=== PATIENT | female | born 1980 | race Caucasian/White ===

== ENCOUNTER 2022-10-17 13:42 | Emergency (ER) | payer SELFPAY ==
[2022-10-17 14:03] VITALS: BP 113/65; PULSE 76; RESP 16; TEMP 37.3; O2SAT 100
--- NOTE | 2022-10-17 15:00 | DI.RAD_ITS ---
Exam(s) XR FOREARM RT EXAM: XR FOREARM RT CLINICAL HISTORY: Fall, R/O Fracture. TECHNIQUE: 2D digital imaging was performed. COMPARISON: No exams were available for comparison FINDINGS: 3 views There is a fracture of the radial head and neck. Some impaction. Joint effusion noted. IMPRESSION: Radial head-neck fracture. Some displacement. DATA REPOSITORY: RADIATION DOSE DELIVERED:
--- NOTE | 2022-10-17 15:08 | W.ED.GENAD ---
Discharge Plan Disposition Patient Disposition: Home Condition: Stable Discharge Details Clinical Impression: Displaced fracture of head of right radius, initial encounter for closed fracture Primary Care Provider: Antonina,Local ED Provider: Arlene Dubon Discharge Instructions Instructions: Arm Fracture in Adults (ED) Additional Instructions: Keep the sling on as much as possible. Please follow-up with orthopedics within the next week for possible surgery. Rest ice. Please take the oxycodone narcotic pain medication as needed for moderate to severe pain. Please take Tylenol or Ibuprofen with food every 4-6 hours as needed for pain and swelling. Stand Alone Forms: Work Release Discharge Data Discharge Date/Time-TO BE ENTERED AT DEPARTURE: 10/17/22 16:46 Medical Decision Making 42-year-old female presents to the ER with a chief complaint of right forearm tenderness status post skiing accident today prior to arrival. Patient reports that she fell onto her right arm was wearing a helmet denies loss of conscious no headache no neck pain no back pain denies any chest or abdominal pain. She is complaining of proximal forearm pain. Intact range of motion to the wrist distal CMS is intact. She is alert and oriented x4. X-ray of right forearm ordered, urine , ice and sling. Patient has no other signs or symptoms of trauma. 1615: Spoke with Dr. Newell who recommends sling and surgery within a week. Patient and family are from [place]. I did discuss the options for surgery here versus follow-up at home they verbalized understanding they opted to follow-up with Ortho in [place]. A disc was requested from radiology. I did discuss home care and strict return instructions they verbalized understanding. Patient is okay with just a sling. I did give patient for 5 mg oxycodone to go. Discussed home care with this. Also instructed RICE procedures, immobilization with sling Tylenol ibuprofen. She verbalized understanding. This text was generated using [employer] dictation system, please disregard any oddities of phrase or misspellings. Imaging Data Radiologic Study: Imaging: X-Ray Radiologist's impression: FINDINGS: 3 views There is a fracture of the radial head and neck.? Some impaction.? Joint effusion noted. IMPRESSION: Radial head-neck fracture.? Some displacement. HPI General Mode of arrival: ambulatory. Date/Time Provider Initiated Documentation: 10/17/22 14:17. Limitations to Documentation: no limitations. Information obtained by: patient, RN notes reviewed and old records reviewed. HPI Narrative: 42-year-old female presents to the ER with a chief complaint of right forearm tenderness status post skiing accident today prior to arrival. Patient reports that she fell onto her right arm was wearing a helmet denies loss of conscious no headache no neck pain no back pain denies any chest or abdominal pain. She is complaining of proximal forearm pain. Intact range of motion to the wrist distal CMS is intact. She is alert and oriented x4. She did not take any medications prior to arrival. General Stated Complaint: Orthopedic MARISELA: 4 Review of Systems All systems reviewed & are unremarkable except as noted in HPI and below Constitutional Constitutional: Denies headache(s) ENT Ears, Nose, Mouth, and Throat: Denies headache(s) Musculoskeletal Musculoskeletal: Reports as per HPI and Reports arthralgias Neurologic Neurologic: Denies headache(s) PFSH All Active Problems (Updated 10/17/22 @ 16:21 by Arlene Dubon NP) Displaced fracture of head of right radius, initial encounter for closed fracture (Acute) Social History Smoking/Tobacco Use Status: Never Smoking risk assessment performed?: Yes Alcohol Intake: never Drug use: Never Substance use type: does not use Do you feel safe at home: Yes Do you feel safe in your relationship?: Yes Exam Narrative Exam Narrative: General: Well Developed, Awake and Alert, conversant. Skin: Warm and Dry HEENT: Head: No palpable deformities, Normocephalic Eyes: Pupils PERRLA, EOM's intact. No periorbital eccymosis or step off Ears: Canal patent. Tympanic membranes are clear . No senior's sign, no hemptympanum. Nose/Face: Atraumatic. Facial bones nontender to palpation and stable with manipulation. Mouth/Throat: No intraoral trauma. Teeth and mandible are intact. Neck: No midline tenderness, no step off, no deformity to palpation of C-spine. Trachea midline. Chest: No surface trauma. Nontender without crepitus or deformity. Lungs clear to ausculatation bilaterally. Heart: RRR, no rubs, murmurs or gallop. Abdomen: No abrasions, ecchymosis, or surface trauma. Nondistended. Nontender to palpation no guarding, rebound, or rigidity. Pelvis: Nontender to palpation and stable to compression. Femoral pulses strong and equal Extremities: no surface trauma. Sensation intact. Peripheral pulses intact and equal. Complaining of right elbow pain proximal forearm pain. Distal CMS intact. Neuro: ANO x4, GCS 15, cranial nerves II through XII intact. Motor and sensory exam nonfocal. Reflexes are symmetric. Course Vital Signs Vital signs: Vital Signs Temperature 37.3 C 10/17/22 14:03 Pulse 76 10/17/22 14:03 Respiratory Rate 16 10/17/22 14:03 Blood Pressure 113/65 10/17/22 14:03 Pulse Oximetry 100 10/17/22 14:03 Temperature 37.3 C 10/17/22 14:03 Pulse 76 10/17/22 14:03 Respiratory Rate 16 10/17/22 14:03 Respiratory Effort Short of Breath 10/17/22 14:52 Blood Pressure 113/65 10/17/22 14:03 Blood Pressure Position Sitting 10/17/22 14:03 Pulse Oximetry 100 10/17/22 14:03 Oxygen Delivery Method Room Air 10/17/22 14:03 Oxygen Flow Rate 0 10/17/22 14:03
[2022-10-17] MEDS: Ibuprofen 600 MG TAB PO (15:27)
[2022-10-17 16:44] VITALS: BP 143/84; PULSE 84; RESP 19; O2SAT 100
== END 2022-10-17 16:46 | disposition home or self-care (01) ==
PROVIDERS: Emergency Provider Registered Nurse Emergency
DX: S52.121A Displaced fracture of head of right radius, initial encounter for closed fracture (principal); V00.321A Fall from snow-skis, initial encounter
CPT/HCPCS: 81025; 99283; 73090